=== PATIENT | male | born 1940 | race Caucasian/White ===

== ENCOUNTER → 2018-05-12 07:47 | Outpatient (BNVA) | payer MEDICARE, OTHER, SELFPAY | PROVIDERS: PCP Internal Medicine; Visit Provider Urology | DX: R35.0 Frequency of micturition (principal); I10 Essential (primary) hypertension | CPT/HCPCS: 99213 ==

== ENCOUNTER 2018-05-17 15:16 | Outpatient (CLI) | payer MEDICARE, OTHER, SELFPAY ==
--- NOTE | 2018-05-17 14:35 | DI.RAD_ITS ---
SYMPTOMS/DIAGNOSIS: LT KNEE PAIN, RT KNEE PAIN, S/P TKA LEFT KNEE: Four views were obtained. There may be slight narrowing of the medial tibiofemoral cartilaginous joint space. There is mild hypertrophic spurring of the bones of the knee most prominent involving superior pole of the patella. No other significant bony abnormality is seen. RIGHT KNEE: Three views were obtained and show total knee joint replacement in position. The components appear well seated. No other significant bony abnormality is seen.
== END 2018-05-17 15:36 ==
PROVIDERS: PCP Internal Medicine; Visit Provider Nurse Practitioner Family
DX: M25.562 Pain in left knee (principal); M25.561 Pain in right knee; Z96.651 Presence of right artificial knee joint
CPT/HCPCS: 73562

== ENCOUNTER 2018-05-23 08:50 | Outpatient (CLI) | payer MEDICARE, OTHER, SELFPAY ==
[2018-05-23 09:34] VITALS: BP 151/82; PULSE 77; RESP 20; TEMP 37.2; O2SAT 95
--- NOTE | 2018-05-23 10:24 | PDOC.PAIN ---
Pain Clinic Procedure Note Current Active Problems Problem Status Onset Knee pain, right Chronic { RIGHT} GENICULAR NERVE BLOCK Date of Service: COMMENTS: Pre-procedure VAS to the {RIGHT knee is 5/10. Patient has been [facility] to [facility] for {RIGHT genicular nerve block. He was interviewed and the medical record reviewed. There were no medical, pharmacologic, radiographic or other structural contraindications to attempting fluoroscopically guided {RIGHT genicular nerve block. Risks and potential side effects as well as potential benefit of the procedure were reviewed with Mr. Dowell, and his voiced concerns were addressed. After I believed that the patient was completely informed, the printed consent form was signed. Standard time-out procedure was performed. Mr. Dowell was placed in the supine position on the fluoroscopy table and automated blood pressure cuff and pulse oximeter applied. The skin entry points for approaching {RIGHT superolateral genicular nerve, the superomedial genicular nerve and the inferomedial genicular was identified under the most advantageous fluoroscopic view and marked. Following thorough Chlorhexadine preparation of the skin and draping, A 3.5 25G spinal needle was advanced to os at the location of the specific nerve root using fluoroscopic guidance. 1/4 mL of Omnipaque 240 was injected and medication next, 1 cc of 0.5% bupivacaine was injected at each site. The needles were removed without difficulty. Mr. Dowell's vital signs were stable throughout the procedure and were as recorded in the docflowsheet by the nursing staff. If given, dosages of intravenous drugs for anxiolysis and analgesia were documented in MAR. Follow up plans and appointments were discussed with the patient. Post procedure instruction was given as documented in nursing documentation and having met discharge criteria, KO was [facility] from the [facility]. COMMENTS: No complications. Post-procedure VAS to the {RIGHT / knee is 0/10. The patient will keep track of her {RIGHT knee pain over the next four hours. If KO has sufficient pain relief, KO will be a candidate for radiofrequency ablation at the same nerves. Celso SchultzJ1, Marci SJ, Heath HardenG, Dontae HardenG, Joseph SHARMA, Keshia PH, Vinny JW. Radiofrequency treatment relieves chronic knee osteoarthritis pain: a double-blind randomized controlled trial. Pain. 2010;152(3):481-7. doi: 10.1016/j.pain.2010.09.029. Isabela S1, Peterson ON2, Vonnie Y3, ?zl?kyle P2, Adolfo U1, Jarvis ?m?rl? I. Which one is more effective for the clinical treatment of chronic pain in knee osteoarthritis: radiofrequency neurotomy of the genicular nerves or intra-articular injection? Int J Rheum Dis. 2016 Feb 12. I personally performed this entire procedure. Nicanor Bishop Attending Physician
--- NOTE | 2018-05-23 10:30 | DI.RAD_ITS ---
SYMPTOM/DIAGNOSIS: CHRONIC KNEE PAIN RIGHT KNEE: Fluoroscopy Time: 32.0 seconds Images submitted from the pain clinic demonstrate needle placement over the distal femur and proximal tibia in connection with a right genicular nerve block carried out by Dr. Bishop. Please see the procedure report for further information.
--- NOTE | 2018-05-23 10:31 | PDOC.PAIN_ITS ---
Pain Clinic Procedure Note Current Active Problems Problem Status Onset Knee pain, right Chronic { RIGHT} GENICULAR NERVE BLOCK Date of Service: COMMENTS: Pre-procedure VAS to the {RIGHT knee is 5/10. Patient has been [facility] to [facility] for {RIGHT genicular nerve block. He was interviewed and the medical record reviewed. There were no medical, pharmacologic, radiographic or other structural contraindications to attempting fluoroscopically guided {RIGHT genicular nerve block. Risks and potential side effects as well as potential benefit of the procedure were reviewed with Mr. Dowell, and his voiced concerns were addressed. After I believed that the patient was completely informed, the printed consent form was signed. Standard time-out procedure was performed. Mr. Dowell was placed in the supine position on the fluoroscopy table and automated blood pressure cuff and pulse oximeter applied. The skin entry points for approaching {RIGHT superolateral genicular nerve, the superomedial genicular nerve and the inferomedial genicular was identified under the most advantageous fluoroscopic view and marked. Following thorough Chlorhexadine preparation of the skin and draping, A 3.5 25G spinal needle was advanced to os at the location of the specific nerve root using fluoroscopic guidance. 1/4 mL of Omnipaque 240 was injected and medication next, 1 cc of 0.5% bupivacaine was injected at each site. The needles were removed without difficulty. Mr. Dowell's vital signs were stable throughout the procedure and were as recorded in the docflowsheet by the nursing staff. If given, dosages of intravenous drugs for anxiolysis and analgesia were documented in MAR. Follow up plans and appointments were discussed with the patient. Post procedure instruction was given as documented in nursing documentation and having met discharge criteria, KO was [facility] from the [facility]. COMMENTS: No complications. Post-procedure VAS to the {RIGHT / knee is 0/10. The patient will keep track of her {RIGHT knee pain over the next four hours. If KO has sufficient pain relief, KO will be a candidate for radiofrequency ablation at the same nerves. Celso SchultzJ1, Marci SJ, Heath HardenG, Dontae HardenG, Joseph SHARMA, Keshia PH, Vinny JW. Radiofrequency treatment relieves chronic knee osteoarthritis pain: a double- blind randomized controlled trial. Pain. 2010;152(3):481-7. doi: 10.1016/ j.pain.2010.09.029. Isabela S1, Peterson ON2, Vonnie Y3, ?zl?kyle P2, Adolfo U1, Jarvis ?m?rl? I. Which one is more effective for the clinical treatment of chronic pain in knee osteoarthritis: radiofrequency neurotomy of the genicular nerves or intra- articular injection? Int J Rheum Dis. 2016 Feb 12. I personally performed this entire procedure. Nicanor Bishop Attending Physician
[2018-05-23] MEDS: Omnipaque 240 MG/ML 50 ML BTL IJ (10:35)
[2018-05-23] MEDS: Bupivacaine 0.5% Pres-Free 10 ML VIAL 30 ML IJ (10:36)
[2018-05-23 10:41] VITALS: BP 162/72; PULSE 71; RESP 12; O2SAT 98
== END 2018-05-23 09:10 ==
PROVIDERS: PCP Internal Medicine; Visit Provider Anesthesiology Pain Medicine
DX: M25.561 Pain in right knee (principal); G89.29 Other chronic pain
CPT/HCPCS: 64450 ×3; 77002; Q9967

== ENCOUNTER 2018-05-30 07:46 | Outpatient (CLI) | payer MEDICARE, OTHER, SELFPAY ==
--- NOTE | 2018-05-30 06:00 | DI.RAD_ITS ---
SYMPTOM/DIAGNOSIS: CHRONIC KNEE PAIN FLUOROSCOPY RIGHT KNEE: Fluoroscopy Time: 84.0sec, 5.42mgy Fluoroscopy was provided for guidance of Pain Clinic injection. Hard copy images show a right total knee prosthesis and positioning of needles around the knee. Please see procedure note for details.
[2018-05-30 07:55] VITALS: BP 140/87; PULSE 66; RESP 18; TEMP 37; O2SAT 98
[2018-05-30] MEDS: Midazolam 2 MG/2 ML VIAL IVP (08:27)
[2018-05-30] MEDS: fentaNYL 100 MCG/2 ML VIAL IVP ×3 (08:27→08:41)
[2018-05-30] MEDS: Lactated Ringers 1,000 ML 80 ML IV (08:29)
[2018-05-30 08:55] VITALS: BP 138/95; PULSE 65; RESP 11; O2SAT 99
[2018-05-30] MEDS: Lidocaine 1% Pres-Free 5 ML VIAL IJ (09:24)
--- NOTE | 2018-05-30 09:40 | PDOC.PAIN ---
Pain Clinic Procedure Note Current Active Problems Problem Status Onset Knee pain, right Chronic { RIGHT GENICULAR NERVE COOLED RADIOFREQUENCY ABLATION COMMENTS: Previous Genicular nerve block to the {RIGHT } knee. Mr. Dowell has been referred to the [facility] for {RIGHT }genicular nerve radiofrequency ablation. was interviewed and the medical record reviewed. There were no medical, pharmacologic, radiographic or other structural contraindications to attempting fluoroscopically guided {RIGHT } genicular nerve radiofrequency ablation. Risks and potential side effects as well as potential benefit of the procedure were reviewed with Mr. Dowell and his voiced concerns were addressed. After I believed that the patient was completely informed, the printed consent form was signed. Standard time-out procedure was performed. Mr. Dowell was placed in the supine position on the fluoroscopy table and automated blood pressure cuff and pulse oximeter applied. The skin entry points for approaching {RIGHT } superolateral genicular nerve, the superomedial genicular nerve and the inferomedial genicular was identified under the most advantageous fluoroscopic view and marked. Following thorough Chlorhexadine preparation of the skin and draping, 1% lidocaine infiltration of the skin entry point and subcutaneous tissues was accomplished using a 1.5 25G needle. Next, the 5 cm 18G RF Cannula with a 4 mm active tip was advanced to os at the location of the specific nerve roots (3) using fluoroscopic guidance. Next, sensory and motor testing was performed and no abnormal findings were found. Next, 1 cc of 2% Lidocaine was injected at each site. The lesion was then created with 60 degrees C for 150 seconds. The needles were removed without difficulty. Mr. Dowell s vital signs were stable throughout the procedure and were as recorded in the docflowsheet by the nursing staff. If given, dosages of intravenous drugs for anxiolysis and analgesia were documented in SEP. Follow up plans and appointments were discussed with the Mr. Hines post procedure instruction was given as documented in nursing documentation and having met discharge criteria, he was discharged from the [facility]. COMMENTS: No complications. Versed 0.5 mg and fentanyl 50 mcg given. Will proceed with left knee if patient has good results. Celso WJ1, Marci SJ, Heath HardenG, Dontae HardenG, Joseph SHARMA, Keshia PH, Vinny JW. Radiofrequency treatment relieves chronic knee osteoarthritis pain: a double-blind randomized controlled trial. Pain. 2011 Sep;152(3):481-7. doi: 10.1016/j.pain.2009..029. Isabela S1, Peterson ON2, Vonnie Y3, ?zl?kyle P2, Adolfo U1, Jarvis ?m?rl? I. Which one is more effective for the clinical treatment of chronic pain in knee osteoarthritis: radiofrequency neurotomy of the genicular nerves or intra-articular injection? Int J Rheum Dis. 2016 Feb 12. F/U as needed Nicanor Bishop MD Attending Physician
--- NOTE | 2018-05-30 09:48 | PDOC.PAIN_ITS ---
Pain Clinic Procedure Note Current Active Problems Problem Status Onset Knee pain, right Chronic { RIGHT GENICULAR NERVE COOLED RADIOFREQUENCY ABLATION COMMENTS: Previous Genicular nerve block to the {RIGHT } knee. Mr. Dowell has been referred to the [facility] for {RIGHT }genicular nerve radiofrequency ablation. was interviewed and the medical record reviewed. There were no medical, pharmacologic, radiographic or other structural contraindications to attempting fluoroscopically guided {RIGHT } genicular nerve radiofrequency ablation. Risks and potential side effects as well as potential benefit of the procedure were reviewed with Mr. Dowell and his voiced concerns were addressed. After I believed that the patient was completely informed, the printed consent form was signed. Standard time-out procedure was performed. Mr. Dowell was placed in the supine position on the fluoroscopy table and automated blood pressure cuff and pulse oximeter applied. The skin entry points for approaching {RIGHT } superolateral genicular nerve, the superomedial genicular nerve and the inferomedial genicular was identified under the most advantageous fluoroscopic view and marked. Following thorough Chlorhexadine preparation of the skin and draping, 1% lidocaine infiltration of the skin entry point and subcutaneous tissues was accomplished using a 1.5 25G needle. Next, the 5 cm 18G RF Cannula with a 4 mm active tip was advanced to os at the location of the specific nerve roots (3) using fluoroscopic guidance. Next, sensory and motor testing was performed and no abnormal findings were found. Next, 1 cc of 2% Lidocaine was injected at each site. The lesion was then created with 60 degrees C for 150 seconds. The needles were removed without difficulty. Mr. Dowell s vital signs were stable throughout the procedure and were as recorded in the docflowsheet by the nursing staff. If given, dosages of intravenous drugs for anxiolysis and analgesia were documented in SEP. Follow up plans and appointments were discussed with the Mr. Hines post procedure instruction was given as documented in nursing documentation and having met discharge criteria, he was discharged from the [facility]. COMMENTS: No complications. Versed 0.5 mg and fentanyl 50 mcg given. Will proceed with left knee if patient has good results. Celso WJ1, Marci SJ, Heath HardenG, Dontae HardenG, Joseph SHARMA, Keshia PH, Vinny JW. Radiofrequency treatment relieves chronic knee osteoarthritis pain: a double- blind randomized controlled trial. Pain. 2011 Sep;152(3):481-7. doi: 10.1016/ j.pain.2009..029. Isabela S1, Peterson ON2, Vonnie Y3, ?zl?kyle P2, Adolfo U1, Jarvis ?m?rl? I. Which one is more effective for the clinical treatment of chronic pain in knee osteoarthritis: radiofrequency neurotomy of the genicular nerves or intra- articular injection? Int J Rheum Dis. 2016 Feb 12. F/U as needed Nicanor Bishop MD Attending Physician
== END 2018-05-30 08:06 ==
PROVIDERS: PCP Internal Medicine; Visit Provider Anesthesiology Pain Medicine
DX: M25.561 Pain in right knee (principal); G89.29 Other chronic pain
CPT/HCPCS: 64640 ×3; 77002; J2250; J3010

== ENCOUNTER 2018-06-06 08:02 | Outpatient (CLI) | payer MEDICARE, OTHER, SELFPAY ==
--- NOTE | 2018-06-06 06:00 | DI.RAD_ITS ---
SYMPTOM/DIAGNOSIS: KNEE PAIN PAIN CLINIC: Fluoroscopy Time: 41.2sec, 1.71mgy Fluoroscopy was utilized by Dr. Bishop during the performance of a left knee block. Please refer to the procedure report for complete details.
[2018-06-06 08:12] VITALS: BP 150/86; PULSE 63; RESP 18; TEMP 36.7; O2SAT 98
--- NOTE | 2018-06-06 08:45 | PDOC.PAIN ---
Pain Clinic Procedure Note Current Active Problems Problem Status Onset Knee pain, left Chronic COMMENTS: Pre-procedure VAS to the Left knee is 8/10. Patient has been referred to the [facility] for LEFT genicular nerve block. He was interviewed and the medical record reviewed. There were no medical, pharmacologic, radiographic or other structural contraindications to attempting fluoroscopically guided LEFT genicular nerve block. Risks and potential side effects as well as potential benefit of the procedure were reviewed with Mr. Dowell, and his voiced concerns were addressed. After I believed that the patient was completely informed, the printed consent form was signed. Standard time-out procedure was performed. Mr. Dowell was placed in the supine position on the fluoroscopy table and automated blood pressure cuff and pulse oximeter applied. The skin entry points for approaching LEFT superolateral genicular nerve, the superomedial genicular nerve and the inferomedial genicular was identified under the most advantageous fluoroscopic view and marked. Following thorough Chlorhexadine preparation of the skin and draping, A 3.5 25G spinal needle was advanced to os at the location of the specific nerve root using fluoroscopic guidance. 1/4 mL of Omnipaque 240 was injected and medication next, 1 cc of 0.5% bupivacaine was injected at each site. The needles were removed without difficulty. Mr. Dowell's vital signs were stable throughout the procedure and were as recorded in the docflowsheet by the nursing staff. If given, dosages of intravenous drugs for anxiolysis and analgesia were documented in MAR. Follow up plans and appointments were discussed with the patient. Post procedure instruction was given as documented in nursing documentation and having met discharge criteria, He was discharged from the [facility]. COMMENTS: No complications. Post-procedure VAS to the LEFT knee is 4/10. The patient will keep track of her LEFT knee pain over the next four hours. If Mr. Dowell has sufficient pain relief, he will be a candidate for radiofrequency ablation at the same nerves.
[2018-06-06] MEDS: Bupivacaine 0.5% Pres-Free 30 ML VIAL IJ (08:49)
[2018-06-06] MEDS: Omnipaque 240 MG/ML 50 ML BTL IJ (08:49)
[2018-06-06 08:50] VITALS: BP 179/79; PULSE 75; RESP 17; O2SAT 100
== END 2018-06-06 08:22 ==
PROVIDERS: PCP Internal Medicine; Visit Provider Anesthesiology Pain Medicine
DX: M25.562 Pain in left knee (principal); G89.29 Other chronic pain
CPT/HCPCS: 64450 ×3; 77002; Q9967

== ENCOUNTER 2018-06-07 07:30 | Outpatient (CLI) | payer MEDICARE, OTHER, SELFPAY ==
[2018-06-07 07:45] VITALS: BP 122/74; PULSE 68; RESP 18; TEMP 37; O2SAT 96
[2018-06-07] MEDS: Lactated Ringers 1,000 ML 80 ML IV (08:23)
[2018-06-07] MEDS: fentaNYL 100 MCG/2 ML VIAL IVP (08:28)
[2018-06-07] MEDS: Midazolam 2 MG/2 ML VIAL IVP (08:28)
[2018-06-07 08:50] VITALS: BP 142/78; PULSE 66; RESP 18; O2SAT 96
--- NOTE | 2018-06-07 08:54 | DI.RAD_ITS ---
SYMPTOMS/DIAGNOSIS: LEFT KNEE PAIN C-ARM FLUOROSCOPY OF THE LEFT KNEE: Fluoroscopy Time: 64.8 sec 2.71 mGy Fluoroscopy was provided for guidance with Pain Clinic injection. Hard copy images show several needles positioned around the left knee. Please see procedure note for details.
--- NOTE | 2018-06-07 08:56 | PDOC.PAIN ---
Pain Clinic Procedure Note Current Active Problems Problem Status Onset Knee pain, left Chronic LEFT GENICULAR NERVE COOLED RADIOFREQUENCY ABLATION COMMENTS: Previous Genicular nerve block to the {LEFT } knee. Mr. Dowell has been referred to the [facility] for {LEFT}genicular nerve radiofrequency ablation. was interviewed and the medical record reviewed. There were no medical, pharmacologic, radiographic or other structural contraindications to attempting fluoroscopically guided {LEFT } genicular nerve radiofrequency ablation. Risks and potential side effects as well as potential benefit of the procedure were reviewed with Mr. Dowell and his voiced concerns were addressed. After I believed that the patient was completely informed, the printed consent form was signed. Standard time-out procedure was performed. Mr. Dowell was placed in the supine position on the fluoroscopy table and automated blood pressure cuff and pulse oximeter applied. The skin entry points for approaching {LEFT } superolateral genicular nerve, the superomedial genicular nerve and the inferomedial genicular was identified under the most advantageous fluoroscopic view and marked. Following thorough Chlorhexadine preparation of the skin and draping, 1% lidocaine infiltration of the skin entry point and subcutaneous tissues was accomplished using a 1.5 25G needle. Next, the 5 cm 18G RF Cannula with a 4 mm active tip was advanced to os at the location of the specific nerve roots (3) using fluoroscopic guidance. Next, sensory and motor testing was performed and no abnormal findings were found. Next, 1 cc of 2% Lidocaine was injected at each site. The lesion was then created with 60 degrees C for 150 seconds. The needles were removed without difficulty. Mr. Dowell s vital signs were stable throughout the procedure and were as recorded in the docflowsheet by the nursing staff. If given, dosages of intravenous drugs for anxiolysis and analgesia were documented in SEP. Follow up plans and appointments were discussed with the Mr. Hines post procedure instruction was given as documented in nursing documentation and having met discharge criteria, he was discharged from the [facility]. COMMENTS: No complications. Versed 1 mg and fentanyl 50 mcg given. F/U PRN. Celso WJ1, Marci SJ, Heath HardenG, Dontae HardenG, Joseph SHARMA, Keshia PH, Vinny JW. Radiofrequency treatment relieves chronic knee osteoarthritis pain: a double-blind randomized controlled trial. Pain. 2010;152(3):481-7. doi: 10.1016/j.pain.2010.09.029. Isabela S1, Peterson ON2, Vonnie Y3, ?zl?kyle P2, Adolfo U1, Jarvis ?m?rl? I. Which one is more effective for the clinical treatment of chronic pain in knee osteoarthritis: radiofrequency neurotomy of the genicular nerves or intra-articular injection? Int J Rheum Dis. 2016 Feb 12. F/U as needed Nicanor Bishop MD Attending Physician
--- NOTE | 2018-06-07 08:59 | PDOC.PAIN_ITS ---
Pain Clinic Procedure Note Current Active Problems Problem Status Onset Knee pain, left Chronic LEFT GENICULAR NERVE COOLED RADIOFREQUENCY ABLATION COMMENTS: Previous Genicular nerve block to the {LEFT } knee. Mr. Dowell has been referred to the [facility] for {LEFT}genicular nerve radiofrequency ablation. was interviewed and the medical record reviewed. There were no medical, pharmacologic, radiographic or other structural contraindications to attempting fluoroscopically guided {LEFT } genicular nerve radiofrequency ablation. Risks and potential side effects as well as potential benefit of the procedure were reviewed with Mr. Dowell and his voiced concerns were addressed. After I believed that the patient was completely informed, the printed consent form was signed. Standard time-out procedure was performed. Mr. Dowell was placed in the supine position on the fluoroscopy table and automated blood pressure cuff and pulse oximeter applied. The skin entry points for approaching {LEFT } superolateral genicular nerve, the superomedial genicular nerve and the inferomedial genicular was identified under the most advantageous fluoroscopic view and marked. Following thorough Chlorhexadine preparation of the skin and draping, 1% lidocaine infiltration of the skin entry point and subcutaneous tissues was accomplished using a 1.5 25G needle. Next, the 5 cm 18G RF Cannula with a 4 mm active tip was advanced to os at the location of the specific nerve roots (3) using fluoroscopic guidance. Next, sensory and motor testing was performed and no abnormal findings were found. Next, 1 cc of 2% Lidocaine was injected at each site. The lesion was then created with 60 degrees C for 150 seconds. The needles were removed without difficulty. Mr. Dowell s vital signs were stable throughout the procedure and were as recorded in the docflowsheet by the nursing staff. If given, dosages of intravenous drugs for anxiolysis and analgesia were documented in SEP. Follow up plans and appointments were discussed with the Mr. Hines post procedure instruction was given as documented in nursing documentation and having met discharge criteria, he was discharged from the [facility]. COMMENTS: No complications. Versed 1 mg and fentanyl 50 mcg given. F/U PRN. Celso WJ1, Marci SJ, Heath HardenG, Dontae HardenG, Joseph SHARMA, Keshia PH, Vinny JW. Radiofrequency treatment relieves chronic knee osteoarthritis pain: a double- blind randomized controlled trial. Pain. 2010;152(3):481-7. doi: 10.1016/ j.pain.2010.09.029. Isabela S1, Peterson ON2, Vonnie Y3, ?zl?kyle P2, Adolfo U1, Jarvis ?m?rl? I. Which one is more effective for the clinical treatment of chronic pain in knee osteoarthritis: radiofrequency neurotomy of the genicular nerves or intra- articular injection? Int J Rheum Dis. 2016 Feb 12. F/U as needed Nicanor Bishop MD Attending Physician
== END 2018-06-07 07:50 ==
PROVIDERS: PCP Internal Medicine; Visit Provider Anesthesiology Pain Medicine
DX: M25.562 Pain in left knee (principal); G89.29 Other chronic pain
CPT/HCPCS: 64640 ×3; 77002; J2250; J3010

== ENCOUNTER → 2018-08-24 10:16 | Outpatient (BNVA) | payer MEDICARE, OTHER, SELFPAY | PROVIDERS: PCP Internal Medicine; Referring Provider Internal Medicine; Visit Provider Orthopaedic Surgery | DX: T84.84XA Pain due to internal orthopedic prosthetic devices, implants and grafts, initial encounter (principal); Z96.651 Presence of right artificial knee joint; I10 Essential (primary) hypertension | CPT/HCPCS: 99213 ==

== ENCOUNTER 2018-12-26 09:04 | Outpatient (CLI) | payer MEDICARE, OTHER, SELFPAY ==
[2018-12-26 09:09] VITALS: BP 144/80; PULSE 64; RESP 18; TEMP 37; O2SAT 97
[2018-12-26] MEDS: fentaNYL 100 MCG/2 ML VIAL IVP (10:05)
[2018-12-26] MEDS: Midazolam 2 MG/2 ML VIAL IVP (10:05)
[2018-12-26] MEDS: Lactated Ringers 1,000 ML 80 ML IV (10:07)
[2018-12-26 10:53] VITALS: BP 138/75; PULSE 65; RESP 12; O2SAT 100
--- NOTE | 2018-12-26 11:03 | PDOC.PAIN_ITS ---
Pain Clinic Procedure Note Current Active Problems Problem Status Onset Knee osteoarthritis Acute BILATERAL GENICULAR NERVE RADIOFREQUENCY ABLATION USING THE COOLIEF MACHINE Date of Service: December 26, 2018 Patient: MARIETTA CARVALHO Provider: Misael Sanz DO, MPH COMMENTS: Previous Genicular nerve block to the bilateral knees. MARIETTA CARVALHO has been referred to the [facility] for bilateral genicular nerve radiofrequency ablation. MARIETTA was interviewed and the medical record reviewed. There were no medical, pharmacologic, radiographic or other structural contraindications to attempting fluoroscopically guided bilateral genicular nerve radiofrequency ablation. Risks and potential side effects as well as potential benefit of the procedure were reviewed with MARIETTA CARVALHO , and HIS voiced concerns were addressed. After I believed that the patient was completely informed, the printed consent form was signed. Standard time-out procedure was performed. MARIETTA was placed in the supine position on the fluoroscopy table and automated blood pressure cuff and pulse oximeter applied. The skin entry points for approaching bilateral superolateral genicular nerve, the superomedial genicular nerve and the inferomedial genicular was identified under the most advantageous fluoroscopic view and marked. Following thorough Chlorhexadine preparation of the skin and draping, 1% lidocaine infiltration of the skin entry point and subcutaneous tissues was accomplished using a 1.5 25G needle. Next, the 10 cm 18G RF Cannula with a 10 mm active tip was advanced to os at the location of the specific nerve roots (3) using fluoroscopic guidance. Next, sensory and motor testing was performed and no abnormal findings were found. Next, 1 cc of 2% Lidocaine was injected at each site. The lesion was then created with 80 degrees C for 90 seconds. 1/3 cc of Depomedrol (40 mg/cc) was then injected at each site followed by 2 cc of 0.5% Bupivacaine as the needle was withdrawn. The needles were removed without difficulty. MARIETTA's vital signs were stable throughout the procedure and were as recorded in the docflowsheet by the nursing staff. If given, dosages of intravenous drugs for anxiolysis and analgesia were documented in MAR. Follow up plans and appointments were discussed with the MARIETTA CARVALHO . Post procedure instruction was given as documented in nursing documentation and having met discharge criteria, MARIETTA was discharged from the [facility]. COMMENTS: No complications. Celso WJ1, Marci SJ, Heath JG, Dontae HardenG, Joseph SHARMA, Keshia PH, Vinny JW. Radiofrequency treatment relieves chronic knee osteoarthritis pain: a double-blind randomized controlled trial. Pain. 2010;152(3):481-7. doi: 10.1016/j.pain.2010.09.029. Isabela S1, Peterson ON2, Vonnie Y3, ?zl?kyle P2, Adolfo U1, Jarvis ?m?rl? I. Which one is more effective for the clinical treatment of chronic pain in knee osteoarthritis: radiofrequency neurotomy of the genicular nerves or intra- articular injection? Int J Rheum Dis. 2016 Feb 12. F/U with our office as needed. I personally performed this entire procedure. Misael Sanz DO, MPH Attending Physician
--- NOTE | 2018-12-26 11:04 | DI.RAD_ITS ---
SYMPTOM/DIAGNOSIS: BILAT KNEE PAIN C-ARM: Fluoroscopy Time: 65.9 sec 2.85 Fluoroscopy was provided [address] Dr Sanz while performing pain clinic injections of the knees. Please see procedure note for details.
[2018-12-26] MEDS: Bupivacaine 0.5% Pres-Free 10 ML VIAL IJ (11:26)
[2018-12-26] MEDS: Lidocaine 2% Pres-Free 5 ML VIAL IJ (11:27)
[2018-12-26] MEDS: methylPREDNISolone ACETATE 40 MG/ML VIAL IJ (11:28)
== END 2018-12-26 09:24 ==
PROVIDERS: PCP Internal Medicine; Visit Provider Preventive Medicine Occupational Medicine
DX: M17.11 Unilateral primary osteoarthritis, right knee (principal); M17.12 Unilateral primary osteoarthritis, left knee
CPT/HCPCS: 64640 ×6; 77002; J1030; J2250; J3010

== ENCOUNTER → 2019-05-08 08:24 | Outpatient (BNVA) | payer MEDICARE, OTHER, SELFPAY | PROVIDERS: PCP Internal Medicine; Referring Provider Internal Medicine; Visit Provider Urology | DX: R35.0 Frequency of micturition (principal) | CPT/HCPCS: 51798; 99213 ==

== ENCOUNTER 2021-01-06 08:58 | Outpatient (CLI) | payer MEDICARE, OTHER, SELFPAY ==
--- NOTE | 2021-01-06 07:00 | DI.RAD_ITS ---
Exam(s) XR PAIN CLINIC FLUORO JOINT IN EXAM: XR PAIN CLINIC FLUORO JOINT IN CLINICAL HISTORY: Dx: Osteoarthritis of the knee TECHNIQUE: 2D and realtime digital imaging was performed. CONTRAST MATERIAL: Refer to procedure report. COMPARISON: No exams were available for comparison FINDINGS: Fluoroscopy was provided for Dr. Garcia during the performance of a right genicular radiofrequency ablat ion. Please refer to the procedure report for complete details. Ka,r=2.77 mGy IMPRESSION:
[2021-01-06 09:34] VITALS: BP 151/90; PULSE 72; RESP 18; TEMP 36.9; O2SAT 97
[2021-01-06] MEDS: Lactated Ringers 1,000 ML 80 ML IV (10:32)
[2021-01-06] MEDS: Midazolam 2 MG/2 ML VIAL IVP (10:39)
[2021-01-06] MEDS: fentaNYL 100 MCG/2 ML VIAL IVP (10:40)
[2021-01-06 10:59] VITALS: BP 127/67; PULSE 64; RESP 13; O2SAT 99
--- NOTE | 2021-01-06 11:03 | PDOC.PAIN ---
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 patient reports persistent right knee pain after knee replacement surgery that is on average 8 out of 10, impairing his physical activity such as working in the yard, attending to his garden, etc. PROCEDURE: 1. Superolateral genicular branch from the vastus lateralis 2. Superomedial genicular branch from the vastus medialis 3. Inferomedial genicular branch from the saphenous nerve MARIETTA CARVALHO was brought into brought to the procedure room and placed on the exam table in a comfortable supine position. The place for needle placement was obtained by manual palpation with radiographic confirmation. The sterile field was prepared by chloroprep and sterile drapes. Local anesthesia superficial and deep was provided by local infiltration of 1% lidocaine ~8cc. A 17g 50 mm radiofrequency introducer needle with a 4mm active tip was placed overlying the right knee joint and using fluoroscopic guidance the needle was advanced to a bony endpoint on the superiolateral portion of the femoral condyle of the [Right/left knee]. A second needle was advanced to a bony endpoint on the superiomedial portion of the femoral condyle. A third needle was then placed over the inferiomedial portion of the tibial condyle until a bony endpoint was met. Attempted aspiration yielded no blood. Lateral x-ray views showed all the needles at 50% depth of the femur and tibia. Motor stimulation was tested ad 2.0 volts with no leg movement. Images were saved in AP and lateral. 1cc of preservative free 2% lidocaine was injected at each site prior to lesioning. Then a radiofrequency ablation of each of the geniculate nerves were done at 80 degrees Celsius for 2 minutes and 30 seconds each. A mixture consisting of 0.5% Bupivocaine and 40mg/ml of Depomedrol was slowly injected post lesioning to reduce chance of post-RF neuritis. The needles were withdrawn. POST PROCEDURE EVALUATION: IMPRESSION: 1. patient received total of 1mg of IV versed and 25mcg of IV fentanyl 2. patient tolerated procedure without issue. Follow up plans and appointments were discussed with the MARIETTA . Post procedure instruction was given as documented in nursing documentation and having met discharge criteria, MARIETTA was discharged from the [facility]. COMMENTS: No complications. F/U with our office as needed. I personally performed this entire procedure. Delaney Santana MD Attending Physician
[2021-01-06] MEDS: methylPREDNISolone ACETATE 40 MG/ML VIAL IJ (11:24)
[2021-01-06] MEDS: Lidocaine 2% Pres-Free 5 ML VIAL IJ (11:24)
[2021-01-06] MEDS: Bupivacaine 0.5% Pres-Free 10 ML VIAL IJ (11:24)
== END 2021-01-06 08:59 | disposition home or self-care (01) ==
LOC: PC 08:59
PROVIDERS: PCP Internal Medicine; Visit Provider Internal Medicine
DX: M17.11 Unilateral primary osteoarthritis, right knee (principal); M25.561 Pain in right knee
CPT/HCPCS: 64624; 77002; J1030; J2250; J3010

== ENCOUNTER 2024-04-12 09:08 | Outpatient (CLI) | payer MEDICARE, OTHER, SELFPAY ==
--- NOTE | 2024-04-12 06:00 | DI.RAD_ITS ---
Exam(s) XR PAIN CLINIC FLUORO JOINT IN EXAM: XR PAIN CLINIC FLUORO JOINT IN CLINICAL HISTORY: DX: Right Knee Osteoarthritis TECHNIQUE: 2D and realtime digital imaging was performed. Radiologist not present. CONTRAST MATERIAL: None. COMPARISON: No exams were available for comparison FINDINGS: Fluoroscopy was provided for pain management therapy. Please refer to procedure report or details. Radiation Exposure Index: Ka,r=3.4 mGy IMPRESSION: As above. RADIATION DOSE DELIVERED:
[2024-04-12 07:50] VITALS: BP 137/78; PULSE 87; RESP 14; TEMP 36.4; O2SAT 97
[2024-04-12 08:09] VITALS: O2SAT 94
[2024-04-12 08:10] VITALS: O2SAT 96
[2024-04-12 08:20] VITALS: O2SAT 99
--- NOTE | 2024-04-12 09:04 | PDOC.PAIN_ITS ---
Date of service: 04/12/24 Time of Service: 09:04 [facility] Procedure Note Procedure Note Procedure Note: PROCEDURE NOTE RIGHT GENICULAR NERVE BLOCKS Date of Service: April 12, 2024 Patient: MARIETTA CARVALHO Provider: Misael Sanz DO, MPH MARIETTA CARVALHO has been referred to the [facility] for Right genicular nerve block. Pre-operative diagnosis: Pain in right knee M25.561 Post-operative diagnosis: Same Pre-Procedure Pain: VAS=8/10 COMMENTS: I previously evaluated him in the office. His pain is the same. His right knee is worse than his left knee PROCEDURE: 1. Block of the Superolateral genicular branch from the vastus lateralis 2. Block of the Superomedial genicular branch from the vastus medialis 3. Block of the Inferomedial genicular branch from the saphenous nerve 4. Block of the Terminal branch of the nerve vastus intermedius MARIETTA was interviewed and the medical record reviewed. There were no medical, pharmacologic, radiographic or other structural contraindications to attempting fluoroscopically guided Right genicular nerve block. Risks and potential side effects as well as potential benefit of the procedure were reviewed with MARIETTA CARVALHO , and the patient's voiced concerns were addressed. After I believed that the patient was completely informed, the printed consent form was signed. Standard time-out procedure was performed. After a thorough Chlorhexadine preparation of the skin and draping the skin entry points for approaching Right superolateral genicular nerve, the superomedial genicular nerve, nerve of the vastus intermedius and the inferomedial genicular was identified under the most advantageous fluoroscopic view and marked. Next, 3.5 25G spinal needle was advanced to os at the location of the specific nerve root using fluoroscopic guidance. Next 0.5 cc of 0.5% Bupivacaine was injected at each site. There was no unusual discomfort expressed by MARIETTA. The needles were withdrawn without difficulty. MARIETTA was observed and was without hemodynamic, neurologic, or allergic reactions.? Fluoroscopic images were digitally archived. MARIETTA's vital signs were stable throughout the procedure and were as recorded in the docflowsheet by the nursing staff. If given, dosages of intravenous drugs for anxiolysis and analgesia were documented in MAR. Follow up plans and appointments were discussed. MARIETTA was instructed to keep careful note of how the usual pain was modified by these injections. Specifically, MARIETTA was asked to keep a pain diary for the next 4 hours using a numeric pain scale of 0-10 and report these results. Post procedure instruction was given as documented in nursing documentation and having met discharge criteria, MARIETTA was discharged from the [facility]. COMMENTS: No apparent complications. Post-procedure pain: VAS= 4/10. MARIETTA will call back with 0-4 hour post-procedure pain scores. I personally completed the entire procedure. MISAEL SANZ DO, MPH ABPM&R - Subspecialty board certification in Pain Medicine [facility]
[2024-04-12] MEDS: Omnipaque 240 MG/ML 50 ML BTL IJ (10:38)
[2024-04-12] MEDS: Bupivacaine 0.5% Pres-Free 10 ML VIAL IJ (10:39)
[2024-04-12] MEDS: Nerve Block Tray 1 EACH MC (10:39)
== END 2024-04-12 09:09 | disposition home or self-care (01) ==
LOC: PC 09:08
PROVIDERS: PCP Family Medicine; Visit Provider Preventive Medicine Occupational Medicine
DX: M17.11 Unilateral primary osteoarthritis, right knee; M25.561 Pain in right knee
CPT/HCPCS: 64454; 77002; J0665; Q9967

== ENCOUNTER 2024-06-06 07:36 | Outpatient (CLI) | payer MEDICARE, OTHER, SELFPAY ==
[2024-06-06] VITALS (14 sets, daily range): BP systolic 132–158; BP diastolic 58–91; PULSE 60–82; RESP 11–24; TEMP 36.7; O2SAT 93–100
--- NOTE | 2024-06-06 06:00 | DI.RAD_ITS ---
Exam(s) XR PAIN CLINIC FLUORO JOINT IN EXAM: XR PAIN CLINIC FLUORO JOINT IN CLINICAL HISTORY: Osteoarthritis of the knee. TECHNIQUE: Fluoroscopy was provided for the referring physician for guidance with performing pain cl inic injection procedure. COMPARISON: No exams were available for comparison FINDINGS: Please see procedure note for details. Fluoro time: 40.5 seconds RADIATION DOSE DELIVERED: treasure Sidhu=2.36 mGy
[2024-06-06] MEDS: fentaNYL 100 MCG/2 ML VIAL IVP ×2 (08:42→08:47)
[2024-06-06] MEDS: Lactated Ringers 500 ML 80 ML IV (08:42)
[2024-06-06] MEDS: Nerve Block Tray 1 EACH MC (09:04)
[2024-06-06] MEDS: Bupivacaine 0.5% Pres-Free 10 ML VIAL IJ (09:16)
[2024-06-06] MEDS: Lidocaine 2% Multi-Dose 20 ML VIAL IJ (09:16)
[2024-06-06] MEDS: methylPREDNISolone ACETATE 40 MG/ML VIAL IJ (09:17)
--- NOTE | 2024-06-06 10:05 | PDOC.PAIN_ITS ---
Date of service: 06/06/24 Time of Service: 10:05 Pain Managment Procedure Note Procedure Note Procedure Note: PROCEDURE NOTE RIGHT GENICULAR NERVE RADIOFREQUENCY ABLATION Date of Service: June 06, 2024 Patient: MARIETTA CARVALHO Provider: Jill Stafford DO, MPH MARIETTA CARVALHO has been referred to the [facility] for Right genicular nerve radiofrequency ablation with the [employer] machine. Pre-operative diagnosis: Pain in right knee M25.561 Post-operative diagnosis: Same Pre-Procedure Pain: VAS=8/10 Comments: Previous genicular nerve blocks to the Right knee. He is on Diltiazem and for that reason we avoided using Versed for this procedure. We just used 50 mcg of Fenanyl IV. The patient does have severe osteoarthritis and pain to the left knee. I recommended that we complete left sided Genicular nerve blocks next. PROCEDURE: 1. Superolateral genicular branch from the vastus lateralis 2. Superomedial genicular branch from the vastus medialis 3. Inferomedial genicular branch from the saphenous nerve 4. Terminal branch of the nerve vastus intermedius MARIETTA was interviewed and the medical record reviewed. There were no medical, pharmacologic, radiographic or other structural contraindications to attempting fluoroscopically guided Right genicular nerve radiofrequency ablation. Risks and potential side effects as well as potential benefit of the procedure were reviewed with MARIETTA CARVALHO , and the patient's voiced concerns were addressed. After I believed that the patient was completely informed, the printed consent form was signed. Standard time-out procedure was performed. MARIETTA CARVALHO was brought into brought to the procedure room and placed on the fluoroscopy table in a comfortable supine position and automated blood pressure cuff and pulse oximeter applied. A grounding pad was placed on the right ankle. The place for needle placement was obtained by manual palpation with radiographic confirmation. The skin entry points for approaching Right superolateral genicular nerve, the superomedial genicular nerve, nerve of the vastus intermedius and the inferomedial genicular was identified under the most advantageous fluoroscopic view and marked. Following thorough Chlorhexadine preparation of the skin and draping, 1% lidocaine infiltration of the skin entry point and subcutaneous tissues was accomplished using a 1.5 25G needle. Next, the 17G 50 mm radiofrequency cannula needle with a 4mm active tip was advanced to os at the location of the specific nerve roots (4) using fluoroscopic guidance. Next, motor testing was performed and no abnormal findings were found. Next, 1 cc of 2% Lidocaine was injected at each site after negative aspiration. The lesion was then created with 80 degrees Celsius for 2 minutes and 30 seconds each. 1/4 cc of Depo-Medrol (40 mg/cc) was then injected at each site followed by 1 cc of 0.5% Bupivacaine as the needle was withdrawn. There was no unusual discomfort expressed by MARIETTA. The needles were withdrawn without difficulty. MARIETTA was observed and was without hemodynamic, neurologic, or allergic reactions.? Fluoroscopic images were digitally archived. MARIETTA's vital signs were stable throughout the procedure and were as recorded in the docflowsheet by the nursing staff. If given, dosages of intravenous drugs for anxiolysis and analgesia were documented in MAR. POST PROCEDURE EVALUATION: IMPRESSION: 1. Medication given is documented in the MAR 2. Follow up plan: MARIETTA to contact [facility] as needed. This procedure may be repeated if the patient achieves at least 50% improvement in pain and/or function for at least 6 months. 3. Estimated Blood Loss: <5ml 4. Fluoroscopy time: Documented in the EMR Follow up plans and appointments were discussed with MARIETTA. Post procedure instruction was given as documented in nursing documentation and having met discharge criteria, MARIETTA was discharged from the [facility]. This advanced procedure uses cooled radiofrequency energy to safely target the sensory nerves responsible for sending pain signals.1 A radiofrequency generator transmits a small current of Radiofrequency energy through an insulated electrode, or probe, placed within tissue. Ionic heating, produced by the friction of charged molecules, thermally deactivates the nerves responsible for sending pain signals to the brain. Radiofrequency energy heats and cools the tissue at the site of pain. Unlike other Radiofrequency procedures, Coolief circulates water through the device while heating nervous tissue to create a larger treatment area, increasing the opportunity to help with pain. This combination targets the pain- transmitting nerves without excessive heating, leading to pain relief. COMMENTS: No apparent complications. Post-procedure pain: VAS= 4/10. Celso WJ1, Marci SJ, Heath HardenG, Dontae HardenG, Joseph SHARMA, Keshia PH, Vinny JW. Radiofrequency treatment relieves chronic knee osteoarthritis pain: a double-blind randomized controlled trial. Pain. 2011 Sep;152(3):481-7. doi: 10.1016/j.pain.2009.09.029. Isabela S1, Peterson ON2, Vonnie Y3, ?zl?kyle P2, Adolfo U1, Jarvis ?m?rl? I. Which one is more effective for the clinical treatment of chronic pain in knee osteoarthritis: radiofrequency neurotomy of the genicular nerves or intra-a rticular injection? Int J Rheum Dis. 2016 Feb 12. I personally completed the entire procedure. JILL STAFFORD DO, MPH ABPM&R - Subspecialty board certification in Pain Medicine [facility]
== END 2024-06-06 07:37 | disposition home or self-care (01) ==
LOC: PC 07:36
PROVIDERS: PCP Family Medicine; Visit Provider Preventive Medicine Occupational Medicine
DX: M25.561 Pain in right knee (principal); M17.11 Unilateral primary osteoarthritis, right knee
CPT/HCPCS: 64624; 77002; J0665; J1010; J2003; J3010

== ENCOUNTER 2024-08-01 10:12 | Outpatient (CLI) | payer MEDICARE, SELFPAY ==
--- NOTE | 2024-08-01 06:00 | DI.RAD_ITS ---
Exam(s) XR PAIN CLINIC FLUORO JOINT IN EXAM: XR PAIN CLINIC FLUORO JOINT IN CLINICAL HISTORY: Dx: Left knee osteoarthritis TECHNIQUE: 2D and realtime digital imaging was performed. CONTRAST MATERIAL: Refer to procedure report. COMPARISON: No exams were available for comparison FINDINGS: Fluoroscopy was provided for Dr. Sanz during the performance of a left genicular nerve block. Betsy trevizo refer to the procedure report for complete details. Ka,r=2.0 mGy IMPRESSION: RADIATION DOSE DELIVERED: 0.0 0.0 0
[2024-08-01 10:25] VITALS: BP 162/94; PULSE 85; RESP 18; TEMP 36.5; O2SAT 98
[2024-08-01 11:08] VITALS: PULSE 79; O2SAT 96
[2024-08-01 11:10] VITALS: PULSE 78; O2SAT 95
[2024-08-01 11:20] VITALS: PULSE 79; O2SAT 96
[2024-08-01] MEDS: Omnipaque 240 MG/ML 50 ML BTL IJ (11:30)
[2024-08-01] MEDS: Bupivacaine 0.5% Pres-Free 10 ML VIAL IJ (11:30)
[2024-08-01] MEDS: Nerve Block Tray 1 EACH MC (11:30)
--- NOTE | 2024-08-01 14:48 | PDOC.PAIN_ITS ---
Date of service: 08/01/24 Time of Service: 12:00 Pain Managment Procedure Note Procedure Note Procedure Note: PROCEDURE NOTE LEFT GENICULAR NERVE BLOCKS Date of Service: August 01, 2024 Patient: MARIETTA CARVALHO Provider: Misael Sanz DO, MPH MARIETTA CARVALHO has been referred to the [facility] for Left genicular nerve block. Pre-operative diagnosis: Pain in left knee M25.562 Post-operative diagnosis: Same Pre-Procedure Pain: VAS=7/10 COMMENTS: I previously evaluated him in the clinic PROCEDURE: 1. Block of the Superolateral genicular branch from the vastus lateralis 2. Block of the Superomedial genicular branch from the vastus medialis 3. Block of the Inferomedial genicular branch from the saphenous nerve 4. Block of the Terminal branch of the nerve vastus intermedius MARIETTA was interviewed and the medical record reviewed. There were no medical, pharmacologic, radiographic or other structural contraindications to attempting fluoroscopically guided Left genicular nerve block. Risks and potential side effects as well as potential benefit of the procedure were reviewed with MARIETTA CARVALHO , and the patient's voiced concerns were addressed. After I believed that the patient was completely informed, the printed consent form was signed. Standard time-out procedure was performed. After a thorough Chlorhexadine preparation of the skin and draping the skin entry points for approaching Left superolateral genicular nerve, the superomedial genicular nerve, nerve of the vastus intermedius and the inferomedial genicular was identified under the most advantageous fluoroscopic view and marked. Next, 3.5 25G spinal needle was advanced to os at the location of the specific nerve root using fluoroscopic guidance. Next 0.5 cc of 0.5% Bupivacain was injected at each site. There was no unusual discomfort expressed by MARIETTA. The needles were withdrawn without difficulty. MARIETTA was observed and was without hemodynamic, neurologic, or allergic reactions.? Fluoroscopic images were digitally archived. MARIETTA's vital signs were stable throughout the procedure and were as recorded in the docflowsheet by the nursing staff. If given, dosages of intravenous drugs for anxiolysis and analgesia were documented in MAR. Follow up plans and appointments were discussed. MARIETTA was instructed to keep careful note of how the usual pain was modified by these injections. Specifically, MARIETTA was asked to keep a pain diary for the next 4 hours using a numeric pain scale of 0-10 and report these results. Post procedure instruction was given as documented in nursing documentation and having met discharge criteria, MARIETTA was discharged from the [facility]. COMMENTS: No apparent complications. Post-procedure pain: VAS= 0/10. MARIETTA will call back with 0-4 hour post-procedure pain scores. I personally completed the entire procedure. MISAEL SANZ DO, MPH ABPM&R - Subspecialty board certification in Pain Medicine [facility]
== END 2024-08-01 10:13 | disposition home or self-care (01) ==
LOC: PC 10:12
PROVIDERS: PCP Family Medicine; Visit Provider Preventive Medicine Occupational Medicine
DX: M25.562 Pain in left knee (principal); M17.12 Unilateral primary osteoarthritis, left knee
CPT/HCPCS: 64450; 77002; J0665; Q9967

== ENCOUNTER 2024-10-17 01:37 | Outpatient (CLI) | payer MEDICARE, SELFPAY ==
--- NOTE | 2024-10-17 07:00 | DI.MRI_ITS ---
Exam(s) MR LUMBAR SPINE WO EXAM: MR LUMBAR SPINE WO CLINICAL HISTORY: pain,lumbar radiculitis,spinal stenosis,m48.061,m54.16. TECHNIQUE: Multiplanar multisequence MRI of the Lumbar spine was performed. COMPARISON: DX XR LS SPINE 2V OR 3V from 09/10/2024 FINDINGS: Conus medullaris is at lower L1 level. There is no evidence of conus mass nor subjacent clumping of intrathecal nerve roots to suggest arachnoiditis. The distal thecal sac appears unremarkable.There i s no evidence of Tarlov intrasacral cysts nor other significant findings within the sacral canal Bones:There are no fractures nor ominous osseous lesions in the lumbar vertebral bodies and visualize d sacrum. There is a Schmorl's node invagination in the mid inferior endplate of L3 vertebral body w ithout surrounding edema implying that this is not new. With respect to the individual levels... T12-L1: Normal disc height and signal. However, there is asymmetric right-sided annular bulging whic h indents the anterior right side of the thecal sac but not the conus medullaris. Central canal dime nsions are lower normal at this level. There is no significant foraminal stenosis. No facet arthrop athy at this level. L1-2: Relatively preserved disc height. Mild annular bulging but no significant disc herniation nor central canal stenosis. No significant facet arthropathy.No foraminal stenosis. Benign intraosseous hemangioma is noted in the left side of L2 vertebral body. L2-3: Slightly decreased disc height evident on the right side of this disc space with small lateral right-sided osteophytes. There is mild asymmetric annular bulging into the floor of the exiting righ t neural foramen at this level with mild right-sided foraminal stenosis. There is no left-sided fora dean stenosis. Central canal dimensions are lower normal. There is no significant facet arthropath y at this level. L3-4: This level also exhibits moderate asymmetric right-sided disc height loss and lateral right-marcela ed osteophytes. As described above, there is a nonacute Schmorl's node invagination in the mid infer ior endplate of L3 vertebral body. There is no height loss of this vertebral body. Posteriorly ther e is symmetrical annular bulging but no dominant disc herniation. Mild central canal stenosis. No s ignificant foraminal stenosis on either side. There is asymmetric degenerative change in the left fa cet joint at this level.Right facet joint appears unremarkable.. L4-5: This level exhibit symmetrical moderate disc height loss, more so posteriorly than anteriorly. There is relatively symmetrical broad annular bulging without a dominant disc herniation. Central c anal dimensions are lower normal. The annular bulging extends into the floor both exiting neural for celestino but there does not appear to be significant foraminal stenosis on either side. There are mild- moderate degenerative changes in the left facet joint at this level. There are mild degenerative angelic nges in the right facet joint at this level. L5-S1: None this level exhibits chronic symmetrical disc space narrowing with Modic type 2 sub endpla te fatty marrow change on both sides of the disc space. Posteriorly there is mild annular bulging wh ich extends into the floor both exiting neural foramina. There is mild central subligamentous annula r bulging but there is no central spinal canal stenosis. There is mild foraminal stenosis on the rig ht side at this level; less so on the left side. Mild degenerative changes in both facet joints. Soft tissues: paraspinal soft tissues appear unremarkable.No evidence of abdominal aortic aneurysm. IMPRESSION: 1. Mild multilevel findings as described individually above. 2. No dominant disc herniation nor prominent central canal stenosis nor prominent foraminal stenosis. 3. There is mild central canal stenosis at L3-4 level and there is mild asymmetric foraminal stenosis on the right side at L2-3 and L5-S1 levels. 4. There is only mild facet arthropathy for this age group. No significant listhesis evident. DATA REPOSITORY:
== END 2024-10-17 01:57 ==
PROVIDERS: PCP Family Medicine; Visit Provider Anesthesiology Pain Medicine
DX: M48.061 Spinal stenosis, lumbar region without neurogenic claudication (principal)
CPT/HCPCS: 72148